=== PATIENT | female | born 1970 | race Caucasian/White ===

== ENCOUNTER 2016-10-30 09:10 | Outpatient (CLI) | payer MEDICARE, MEDICAID | END 2016-10-30 09:11 | disposition EMS.NT | DX: R45.89 Other symptoms and signs involving emotional state (principal) ==

== ENCOUNTER 2016-12-03 10:04 | Outpatient (CLI) | payer MEDICARE, MEDICAID | END 2016-12-03 10:05 | disposition critical access hospital (66) | LOC: EMS 10:04 | PROVIDERS: ATTEND Surgery | DX: M25.562 Pain in left knee (principal); W18.30XA Fall on same level, unspecified, initial encounter; Y92.512 Supermarket, store or market as the place of occurrence of the external cause | CPT/HCPCS: A0425; A0429 ==

== ENCOUNTER 2016-12-03 10:32 | Emergency (ER) | payer MEDICARE, MEDICAID ==
[2016-12-03] MEDS ORDERED: IBUPROFEN 400 MG TABLET PO STA (11:42)
[2016-12-03] MEDS ORDERED: ONDANSETRON ODT 4 MG TABLET TL STA (11:42)
--- NOTE | 2016-12-03 11:47 | ED Physician Documentation ---
History of Present Illness - Stated complaint Stated Complaint: KNEE PAIN - Chief complaint Chief Complaint: Ext Problem - Additonal information Additional information: hx from pt 46 f denies preg states she fell off curb hurt L knee no other injuries Review of Systems GI: reports: Nausea (developed in ER) : denies: Now EGA Musculoskeletal: reports: Joint pain PD PAST MEDICAL HISTORY - Past Medical History Psych: Anxiety, Panic attacks, Post traumatic stress disorder - Past Surgical History Past Surgical History: No - Present Medications Home Medications: Ambulatory Orders Medication Instructions Recorded Confirmed Divalproex ER [Depakote ER] 2,000 mg PO DAILY 08/03/15 12/03/16 Venlafaxine [Effexor] 300 mg PO DAILY 08/03/15 12/03/16 Clonidine HCl [Catapres] 0 mg PO DAILY 12/03/16 12/03/16 Ibuprofen [Motrin] 400 mg PO Q6H PRN #30 tablet 12/03/16 - Allergies Allergies/Adverse Reactions: Allergies Allergy/AdvReac Type Severity Reaction Status Date / Time acetaminophen [From Vicodin] Allergy Nausea Verified 04/30/16 10:45 hydrocodone bitartrate * Allergy Nausea Verified 04/30/16 10:45 [From Vicodin] Penicillins Allergy Unknown Verified 04/30/16 10:45 lithium AdvReac Unknown Verified 08/03/15 16:58 morphine AdvReac Unknown Verified 08/03/15 16:58 nefazodone HCl * AdvReac Unknown Verified 08/03/15 16:58 [From Serzone] Sulfa (Sulfonamide AdvReac Unknown Verified 08/03/15 16:58 Antibiotics) - Social History Does the pt smoke?: Yes Smoking Status: Current every day smoker Does the pt drink ETOH?: No Does the pt have substance abuse?: Yes - Immunizations Immunizations are current?: Yes PD ED PE NORMAL - Vitals Vital signs reviewed: Yes - General General: Alert and oriented X 3 - Cardiac Cardiac: RRR - Respiratory Respiratory: No respiratory distress, Clear bilaterally - Abdomen Abdomen: Soft, Non tender - Extremities Extremities: Other (mild edema. TTP lateral jt line, no laxity appreciated, pain with any ROM so diff to assess menisci, MSV intact) Results - Vitals Vitals: Vital Signs - 24 hr 12/03/16 10:33 Temperature 36.5 C Heart Rate 67 Respiratory 16 Rate Blood Pressure 127/85 H O2 Saturation 99 Oxygen O2 Source Room air - Rads (name of study) knee Radiology: See rad report (neg) Departure - Departure Disposition: 01 Home, Self Care Clinical Impression: Knee sprain Qualifiers: Encounter type: initial encounter Involved ligament of knee: lateral collateral ligament Laterality: left Qualified Code(s): S83.422A - Sprain of lateral collateral ligament of left knee, initial encounter Condition: Good Instructions: ED Sprain Knee Collateral Ligaments Follow-Up: Hali Harrison DO [Primary Care Provider] - [facility] [Provider Group] Prescriptions: Ibuprofen [Motrin] 400 mg PO Q6H PRN #30 tablet PRN Reason: Pain Comments: The xray was fine. Based on your exam i think you injured your lateral collateral ligament. This is a soft tissue injury and usually heals on its own without needing surgery. Recommend the FERNIE wrap, ice and elevation as needed for the swelling, motrin for the pain, and crutches to relieved with stress of weight bearing. If your knee is not better in about 2 weeks, please follow up with your PMD and/ or orthopedics for further evaluation and consideration of more imaging
[2016-12-03] MEDS ORDERED: ONDANSETRON ODT 4 MG TABLET ONE (12:01)
[2016-12-03] MEDS ORDERED: IBUPROFEN 400 MG TABLET PO ONE (12:01)
--- NOTE | 2016-12-03 12:05 | XRAY Preliminary Report ---
Exam: XR Knee 4 View LT IMPRESSION: Normal left knee radiography. [facility] SITE ID: [id number]
--- NOTE | 2016-12-03 12:08 | XRAY Report ---
EXAM: LEFT KNEE RADIOGRAPHY EXAM DATE: 12/03/2016 11:21 AM. CLINICAL HISTORY: Increasing knee pain with ground-level fall 2 days ago. COMPARISON: MRI 11/01/2007. TECHNIQUE: 4 views. FINDINGS: Bones: Normal. No fractures or bone lesions. Joints: Normal. No effusion. No subluxations. Soft Tissues: Normal. No soft tissue swelling. IMPRESSION: Normal left knee radiography. [facility] Referring Provider Line: [phone] SITE ID: [id number]
[2016-12-03 12:41] VITALS: BP 143/88
== END 2016-12-03 13:06 | disposition home or self-care (01) ==
LOC: EDUNIT# → ED 10:32
DX: S83.422A Sprain of lateral collateral ligament of left knee, initial encounter (principal); W10.1XXA Fall (on)(from) sidewalk curb, initial encounter; Y93.17 Activity, water skiing and wake boarding; Y92.480 Sidewalk as the place of occurrence of the external cause; F17.200 Nicotine dependence, unspecified, uncomplicated
CPT/HCPCS: 73564; 99283; A9270; Q0162